=== PATIENT | female | born 1980 | race Caucasian/White ===

== ENCOUNTER 2022-03-10 21:48 | Inpatient (IN) | payer OTHER, MEDICAID ==
[~2022-03-10] VITALS: Ht 160 cm; Wt 94.8 kg
[2022-03-10 21:58] VITALS: BP_SYST 105
--- NOTE | 2022-03-10 22:25 | NUR ---
PATIENT TO ER BED 2 FOR EVALUATION. SIDE RAILS UP.
--- NOTE | 2022-03-10 22:32 | NUR ---
AGNES SOLANO AT BEDSIDE EXAMINING PATIENT.
--- NOTE | 2022-03-10 23:25 | NUR ---
pt came with rash over her lower abdomen. pt is A & O x 4, compalining pain 10/10. pt has dialisys access on the abdomen.
[2022-03-11] MEDS ORDERED: OXYCODONE/ACETAMINOPHEN *10*mg/325 mg TABLET PO ONE
[2022-03-11 00:37] LABS: BASOPHILS % (AUTO) 0.4 % (0.0-2.0); EOSINOPHILS # (AUTO) 0.1 K/uL (0.0-0.4); EOSINOPHILS % (AUTO) 1.4 % (0.0-4.0); HEMATOCRIT 26.4 % (36-48); HEMOGLOBIN 9.2 g/dL (12.0-16.0); LYMPHOCYTES # (AUTO) 1.9 K/uL (1.0-5.5); LYMPHOCYTES % (AUTO) 21.2 % (20.5-51.5); MEAN CORPUSCULAR HEMOGLOBIN 38 pg (27-31); MEAN CORPUSCULAR HGB CONC 35 % (32-36); MEAN CORPUSCULAR VOLUME 108 fL (79.0-98.0); MONOCYTES # (AUTO) 0.5 K/uL (0.0-1.0); MONOCYTES % (AUTO) 6.1 % (1.7-9.3); NEUTROPHILS # (AUTO) 6.4 K/uL (1.8-7.7); NEUTROPHILS % (AUTO) 70.9 % (40.0-70.0); PLATELET COUNT (AUTO) 368 K/uL (130-430); RED BLOOD CELL COUNT(AUTO) 2.44 MIL/uL (4.2-6.2); RED CELL DISTRIBUTION WIDTH 18.7 % (9.0-15.0)
[2022-03-11 00:47] LABS: CALCIUM 8.3 mg/dL (8.4-11.0); POTASSIUM 3.5 mmol/L (3.5-5.1)
[2022-03-11 01:03] LABS: ALBUMIN 2.5 g/dL (3.4-4.8); TOTAL BILIRUBIN 0.5 mg/dL (0.0-1.0)
[2022-03-11 01:07] LABS: CREATININE 16.74 mg/dL (0.55-1.30)
[2022-03-11 01:23] LABS: ERYTHROCYTE SEDIMENTATION RATE 30 MM/HR (0-20)
[2022-03-11] MEDS ORDERED: MORPHINE 4 MG INJ. 4 MG/ML VIAL IM ONE (01:45)
[2022-03-11] MEDS ORDERED: LINEZOLID 300 ML IV ONE (03:45)
[2022-03-11] MEDS ORDERED: PIPERACILLIN/TAZO 3.375 GM in NS 50 ML IV ONE (03:45)
--- NOTE | 2022-03-11 03:58 | NUR ---
admit call Paged Dr. Jordyn Gupta [phone] (medical coverage and paged PCP). S/W Josue. Josue called back and stated that for admission, we need to go through [phone]# [phone]), not his office number. This is not [facility] patient therefore unable to reach Dr. Gupta, he is not construction safety manager tonight. Will page admitting MD- Dr. Funk.
--- NOTE | 2022-03-11 04:06 | NUR ---
Admit call Paged Dr. Funk, pager [phone]
[2022-03-11] MEDS ORDERED: PIPERACILLIN/TAZOBACTAM 3.375 GM/VIAL (ZOSYN) IV ONE (04:48)
[2022-03-11] MEDS ORDERED: ONDANSETRON HCL 4 MG/2 ML VIAL IVP ONE (05:45)
--- NOTE | 2022-03-11 06:30 | NUR ---
Admit bed requested Patient will be admitted to care of . Admitted to MED SURGE unit. Diagnosis ABDOMINAL WALL INFECTION Inpatient (Yes or No) NO Observation (Yes or No) NO Orientation concerns or request close to nursing station (Yes or No) NO Covid Status PENDING On vent or bipap NO Isolation requirements Needs a sitter NO From Home (Yes or if No enter name of facility) HOME Requires Dialysis (Yes or No) YES Med Rec Completed (Yes of No)
--- NOTE | 2022-03-11 08:45 | NUR ---
Initial Notes Patient arrived to unit via wheelchair. Patient ambulatory. Vital Signs obtained, within range. SPO2 at 100% on room air. No s/s of distress noted, no SOB. Patient states feels nauseas, states started after receiving morphine in ER. Was given Zofran around 0700. Will continue to monitor. Patient has been oriented to room, use of call light. Safety precautions in place and call light within reach.
--- NOTE | 2022-03-11 08:45 | NUR ---
CARE ENDORSED TO TIFFANIE RANDALL FOR [facility] BED 130A. SBAR PROVIDED. PACKET ALSO PROVIDED. VSS. NAD NOTED. END OF CARE.
--- NOTE | 2022-03-11 09:13 | NUR ---
SURGERY CONSULT CALLED DR AGEE CONSULT SPOKE TO NOTIFIED FOR CONSULT. ZANDRA ABD WALL IFECTION Addendum: 03/11/22 at 0917 by Ghislaine Vu RN SURGERY CONSULT CALLED DR AGEE CONSULT SPOKE TO NOTIFIED FOR CONSULT. ZANDRA ABD WALL INFECTION
--- NOTE | 2022-03-11 12:00 | NUR ---
Notes Patient is awake. Dr. Almodovar came to see patient. No new orders.
[2022-03-11] MEDS: PIPERACILLIN/TAZOBACTAM 2.25 GM in NS 50 ML IV SCH ×2 (12:11→18:25)
[2022-03-11] MEDS ORDERED: ATOR40TA68 PO (12:29)
[2022-03-11] MEDS ORDERED: CEPH250C PO (12:29)
[2022-03-11] MEDS ORDERED: SEVE800T8 PO (12:29)
[2022-03-11] MEDS ORDERED: FENO160 PO (12:29)
[2022-03-11] MEDS ORDERED: CALC0.258 PO (12:29)
[2022-03-11] MEDS ORDERED: LISI2.5T48 PO (12:29)
[2022-03-11] MEDS ORDERED: HYDR-4037 PO (12:29)
[2022-03-11] MEDS ORDERED: DOCU250C14 PO (12:29)
[2022-03-11] MEDS ORDERED: SUCR500T PO (12:29)
[2022-03-11] MEDS ORDERED: traMADol HCL HCL 50 MG TABLET (ULTRAM) PO ONE (12:30)
[2022-03-11] MEDS: metroNIDAZOLE 500 mg/NS 100 ML IV SCH ×2 (14:20→22:48)
[2022-03-11] MEDS ORDERED: NON-FORMULARY MEDICATION (Sucroferric Oxyhydroxide (Velphoro) 1 TAB) PO SCH (15:00)
[2022-03-11 16:00] VITALS: BP_SYST 95
[2022-03-11] MEDS: SEVELAMER CARBONATE 800 MG TABLET PO SCH ×3 (17:40→22:46)
--- NOTE | 2022-03-11 18:00 | NUR ---
Notes Patient in bed, eating dinner. Does not complain of pain. No distress noted. Patient on room air. Patient states feels better. Has not had any emesis recently. Safety precautions are in place. Patient has call light within reach. Gave report and endorsed continuing of care of incoming nurse. Addendum: 03/11/22 at 2000 by Elizabeth Rizzo LVN Closing Note Patient in bed, eating dinner. Does not complain of pain. No distress noted. Patient on room air. Patient states feels better. Patient states less nausea, no emesis at this time. Safety precautions are in place. Patient has call light within reach. Gave report and endorsed continuing of care of incoming nurse.
[2022-03-11] MEDS: hydrALAZINE HCL 10 MG TABLET PO SCH (21:00)
[2022-03-11] MEDS: VELPHORO 500 MG PO SCH (22:00)
[2022-03-11 22:36] VITALS: BP_SYST 113
[2022-03-11] MEDS: ATORVASTATIN 20 MG TABLET PO SCH (22:47)
[2022-03-11] MEDS: DOCUSATE SODIUM 250 MG CAPSULE PO SCH (22:47)
[2022-03-11] MEDS: traMADol HCL HCL 50 MG TABLET (ULTRAM) PO SCH (22:47)
[2022-03-11] MEDS: FENOFIBRATE NANOCRYSTALLIZED 48 MG TABLET (TRICOR) PO SCH (22:47)
[2022-03-12] MEDS: PIPERACILLIN/TAZOBACTAM 2.25 GM in NS 50 ML IV SCH ×2 (00:39→05:04)
[2022-03-12 01:10] VITALS: BP_SYST 118
--- NOTE | 2022-03-12 05:03 | NUR ---
CONSULT: CONSULT CALLED FOR DR. JESSICA BECERRA EQUIP TECH THIS MORNING I SPOKE TO EWA BA REASON BAG MAKING MACHINE TENDER PHONE: [phone]
--- NOTE | 2022-03-12 05:07 | NUR ---
CONSULT CALLED FOR DR. FOSTER I SPOKE TO EWA BA REASON FOR CONSULT: ABDOMINAL WALL INFECTION REQUESTING CONSULT: DR. COSME SPONSORSHIP MANAGER PHONE: [phone]
[2022-03-12] MEDS: metroNIDAZOLE 500 mg/NS 100 ML IV SCH (06:12)
[2022-03-12 08:00] VITALS: BP_SYST 107; BP_SYST 115
--- NOTE | 2022-03-12 08:00 | NUR ---
Initial Notes Patient is AOx4. No s/s of distress, no SOB. Patient denies pain at this time. Vital signs within range. Safety precautions in range and call light within reach.
[2022-03-12] MEDS: lisinopriL 5 MG TABLET PO SCH (08:51)
[2022-03-12] MEDS: DOXYCYCLINE HYCLATE 100 MG CAPSULE PO SCH ×2 (08:53→21:16)
[2022-03-12] MEDS: SEVELAMER CARBONATE 800 MG TABLET PO SCH ×3 (08:53→17:57)
[2022-03-12] MEDS: ACETAMINOPHEN 325 MG TABLET PO PRN ×2 (08:54→17:59)
[2022-03-12] MEDS: DOCUSATE SODIUM 250 MG CAPSULE PO SCH ×2 (08:54→21:15)
[2022-03-12] MEDS: hydrALAZINE HCL 10 MG TABLET PO SCH ×2 (08:54→21:00)
[2022-03-12] MEDS: traMADol HCL HCL 50 MG TABLET (ULTRAM) PO SCH ×2 (08:55→21:31)
[2022-03-12] MEDS: calcitrioL 0.25 MCG CAPSULE PO SCH (08:55)
[2022-03-12] MEDS: VELPHORO 500 MG PO SCH ×3 (08:56→17:58)
[2022-03-12 12:00] VITALS: BP_SYST 138
--- NOTE | 2022-03-12 12:00 | NUR ---
Notes Peritoneal dialysis nurse here. Patient is stable. No distress. Vital signs within range. Call light within reach.
[2022-03-12 13:35] LABS: BASOPHILS # (AUTO) 0.1 K/uL (0.0-0.2); BASOPHILS % (AUTO) 0.8 % (0.0-2.0); EOSINOPHILS # (AUTO) 0.2 K/uL (0.0-0.4); EOSINOPHILS % (AUTO) 1.6 % (0.0-4.0); HEMATOCRIT 29.5 % (36-48); HEMOGLOBIN 9.9 g/dL (12.0-16.0); LYMPHOCYTES # (AUTO) 1.1 K/uL (1.0-5.5); LYMPHOCYTES % (AUTO) 10.8 % (20.5-51.5); MEAN CORPUSCULAR HEMOGLOBIN 37 pg (27-31); MEAN CORPUSCULAR HGB CONC 34 % (32-36); MEAN CORPUSCULAR VOLUME 109 fL (79.0-98.0); MONOCYTES # (AUTO) 0.5 K/uL (0.0-1.0); MONOCYTES % (AUTO) 4.6 % (1.7-9.3); NEUTROPHILS # (AUTO) 8.2 K/uL (1.8-7.7); NEUTROPHILS % (AUTO) 82.2 % (40.0-70.0); PLATELET COUNT (AUTO) 399 K/uL (130-430); RED BLOOD CELL COUNT(AUTO) 2.71 MIL/uL (4.2-6.2); RED CELL DISTRIBUTION WIDTH 18.9 % (9.0-15.0); WHITE BLOOD COUNT (AUTO) 9.9 K/uL (4.8-10.8)
--- NOTE | 2022-03-12 15:30 | NUR ---
Notes MD came to see patient. New orders received. Patient in stable condition.
[2022-03-12 16:00] VITALS: BP_SYST 117
[2022-03-12] MEDS: ONDANSETRON HCL 4 MG/2 ML VIAL IVP PRN (17:36)
--- NOTE | 2022-03-12 18:30 | NUR ---
Closing notes Patient in bed, resting. No s/s of distress. No pain. Endorsed continuing of care to incoming nurse. Safety precautions in place. Call light within reach.
--- NOTE | 2022-03-12 20:45 | NUR ---
RECEIVED PT STANDING AT EDGE OF BED, NO DISTRESS NOTED, DENIES PAIN. YA Addendum: 03/13/22 at 0134 by [facility] Shannan casino floor person 133: PT FEEL NAUSEOUS, ZOFRAN 4MG GIVEN.
[2022-03-12 20:56] VITALS: BP_SYST 117
[2022-03-12] MEDS: ATORVASTATIN 20 MG TABLET PO SCH (21:16)
[2022-03-12] MEDS: FENOFIBRATE NANOCRYSTALLIZED 48 MG TABLET (TRICOR) PO SCH (21:16)
[2022-03-12] MEDS: INSULIN REGULAR, HUMAN 100 UNITS/ML, 10 ML VIAL (humuLIN R) SUBCUT PRN (22:46)
[2022-03-13] VITALS: BP_SYST 91
[2022-03-13] MEDS: ONDANSETRON HCL 4 MG/2 ML VIAL IVP PRN (01:29)
[2022-03-13 06:15] LABS: BASOPHILS # (AUTO) 0.1 K/uL (0.0-0.2); BASOPHILS % (AUTO) 0.6 % (0.0-2.0); EOSINOPHILS # (AUTO) 0.2 K/uL (0.0-0.4); EOSINOPHILS % (AUTO) 2.4 % (0.0-4.0); HEMATOCRIT 25.6 % (36-48); HEMOGLOBIN 8.9 g/dL (12.0-16.0); LYMPHOCYTES # (AUTO) 1.2 K/uL (1.0-5.5); LYMPHOCYTES % (AUTO) 13.8 % (20.5-51.5); MEAN CORPUSCULAR HEMOGLOBIN 37 pg (27-31); MEAN CORPUSCULAR HGB CONC 35 % (32-36); MEAN CORPUSCULAR VOLUME 107 fL (79.0-98.0); MONOCYTES # (AUTO) 0.6 K/uL (0.0-1.0); MONOCYTES % (AUTO) 6.4 % (1.7-9.3); NEUTROPHILS # (AUTO) 6.7 K/uL (1.8-7.7); PLATELET COUNT (AUTO) 374 K/uL (130-430); RED BLOOD CELL COUNT(AUTO) 2.39 MIL/uL (4.2-6.2); RED CELL DISTRIBUTION WIDTH 18.6 % (9.0-15.0); WHITE BLOOD COUNT (AUTO) 8.7 K/uL (4.8-10.8)
[2022-03-13 06:42] LABS: CALCIUM 8.6 mg/dL (8.4-11.0); POTASSIUM 3.7 mmol/L (3.5-5.1)
[2022-03-13] MEDS: INSULIN REGULAR, HUMAN 100 UNITS/ML, 10 ML VIAL (humuLIN R) SUBCUT PRN ×2 (06:46→21:19)
[2022-03-13 07:23] LABS: CREATININE 14.88 mg/dL (0.55-1.30)
--- NOTE | 2022-03-13 07:25 | NUR ---
CRITICAL LAB RESULT- CREATININE=14.88 AND BUN=52 CALLED FROM SALES ORDER CLERK -Endorsed to [facility] shift nurse regarding this critical lab results at nurses' station. Addendum: 03/13/22 at 0728 by [employer] cable supervisor ADDITIONAL NOTES; MARGIE FLORES IS HER NAME FROM LAB UNIT.
[2022-03-13 08:00] VITALS: BP_SYST 117
[2022-03-13 08:02] LABS: NEUTROPHILS % (AUTO) 76.8 % (40.0-70.0)
[2022-03-13] MEDS: SEVELAMER CARBONATE 800 MG TABLET PO SCH ×3 (09:54→18:24)
[2022-03-13] MEDS: lisinopriL 5 MG TABLET PO SCH (09:55)
[2022-03-13] MEDS: calcitrioL 0.25 MCG CAPSULE PO SCH (09:56)
[2022-03-13] MEDS: traMADol HCL HCL 50 MG TABLET (ULTRAM) PO SCH ×2 (09:56→21:11)
[2022-03-13] MEDS: DOXYCYCLINE HYCLATE 100 MG CAPSULE PO SCH ×2 (09:56→21:11)
[2022-03-13] MEDS: hydrALAZINE HCL 10 MG TABLET PO SCH ×2 (09:57→21:00)
[2022-03-13] MEDS: DOCUSATE SODIUM 250 MG CAPSULE PO SCH ×2 (09:58→21:00)
[2022-03-13] MEDS: VELPHORO 500 MG PO SCH ×3 (09:58→18:26)
--- NOTE | 2022-03-13 11:49 | NUR ---
Spoke w/Christian RUCKER at [facility] [phone] ext [phone]. Auth # for inpt stay [id number]. Requested authorization for continued stay vs transfer to contracted hospital. Christian stated he will get get back to me with a decision.
--- NOTE | 2022-03-13 11:59 | NUR ---
Received a return call from Christian enriquez [facility]-they will not transfer the patient into network-authorization is to treat and dsicharge.
--- NOTE | 2022-03-13 15:55 | NUR ---
Dietitian Recommendations * [facility] Renal Diet * Encourage PO intake Please refer to Nutrition Assessment for details. Addendum: 03/13/22 at [address] Amended: Links added.
[2022-03-13] MEDS ORDERED: EPOETIN ALFA 20,000 UNITS/ML VIAL SUBCUT SCH (17:00)
--- NOTE | 2022-03-13 17:50 | NUR ---
0800: PATIENT IS AWAKE, ALERT, ORIENTED X 4 TO NAME, PERSON, PLACE, AND TIME. RESPIRATION EVEN AND UNLABORED NO S/S OF ANY ACUTE DISTRESS NOTED. ABLE TO VERBALIZE NEEDS NO C/O ANY PAIN OR DISCOMFORT NOTED. ABDOMEN SOFT AND NON-DISTENDED, POSITIVE BOWEL SOUND X 4 NO N/V OR DIARRHEA NOTED. SKIN WARM AND DRY INTACT W/O ANY REDNESS OR EDEMA NOTED. LEFT SIDED WEAKNESS FROM OLD CVA, LEFT ARM IN SLING DUE TO LEFT SHOULDER FRACTURE. TO BE NPO POST BREAKFAST FOR PROCEDURE THIS AFTERNOON 1700: PATIENT WAS PICKED UP BY OR STAFF FOR PLAN PROCEDURE, PATIENT REMAINED AWAKE, ALERT, NO CHANGE IN LOC. IV INFUSING WELL W/O ANY SWELLING OR BLEEDING FROM SITE NOTED. Addendum: 03/13/22 at 1755 by One head well puller DISREGARDING ABOVE CHARTING, CHARTED ON WRONG PATIENT. Addendum: 03/13/22 at 1935 by One Dave MOONEY DISREGARD ABOVE NOTE, INCORRECT SHUTDOWN COORDINATOR
--- NOTE | 2022-03-13 17:55 | NUR ---
0800: PATIENT IS AWAKE, ALERT, ORIENTED X 4 TO NAME, PERSON, PLACE, AND TIME. RESPIRATION EVEN AND UNLABORED NO S/S OF ANY ACUTE DISTRESS NOTED. ABDOMEN SOFT AND NON-DISTENDED POSITIVE BOWEL SOUND X 4 NO N/V OR DIARRHEA NOTED. PD CATH LEFT LOWER ABDOMEN INTACT, WITH SOME TENDERNESS NOTED WITH LIGHT PALPATION. SKIN WARM AND DRY INTACT W/O ANY REDNESS OR EDEMA NOTED.
--- NOTE | 2022-03-13 19:00 | NUR ---
PATIENT HAD REMAINED COMFORTABLE W/O ANY CHANGE IN LOC. ENDORSED PATIENT TO PM SHIFT NURSE
[2022-03-13 19:40] VITALS: BP_SYST 109
--- NOTE | 2022-03-13 19:58 | NUR ---
1957 Report and care of pt. given over to VINICIO Moss
[2022-03-13] MEDS: FENOFIBRATE NANOCRYSTALLIZED 48 MG TABLET (TRICOR) PO SCH (21:00)
[2022-03-13 21:03] VITALS: BP_SYST 111
[2022-03-13] MEDS: ATORVASTATIN 20 MG TABLET PO SCH (21:10)
[2022-03-14 00:06] VITALS: BP_SYST 114
[2022-03-14 08:30] VITALS: BP_SYST 120
[2022-03-14] MEDS: SEVELAMER CARBONATE 800 MG TABLET PO SCH ×3 (08:46→17:25)
[2022-03-14] MEDS: calcitrioL 0.25 MCG CAPSULE PO SCH (08:47)
[2022-03-14] MEDS: DOCUSATE SODIUM 250 MG CAPSULE PO SCH (08:47)
[2022-03-14] MEDS: lisinopriL 5 MG TABLET PO SCH (08:48)
[2022-03-14] MEDS: DOXYCYCLINE HYCLATE 100 MG CAPSULE PO SCH (08:49)
[2022-03-14] MEDS: traMADol HCL HCL 50 MG TABLET (ULTRAM) PO SCH (08:49)
[2022-03-14] MEDS: hydrALAZINE HCL 10 MG TABLET PO SCH (08:49)
[2022-03-14] MEDS: VELPHORO 500 MG PO SCH ×3 (09:51→17:25)
--- NOTE | 2022-03-14 12:06 | NUR ---
[facility] NURSE CALLED REGARDING [facility]. BUT INFORMED HER NO DR COSME YET.
[2022-03-14 13:20] VITALS: BP_SYST 120
[2022-03-14 16:33] VITALS: BP_SYST 135
[2022-03-14 17:40] VITALS: BP_SYST 135
--- NOTE | 2022-03-14 18:35 | NUR ---
PATIENT LEFT IN STABLE CONDITION. FOLLOW UP CARE WITH PCP IN ONE WEEK. [employer]ER[employer] RETROFIT ARCHITECT MEDICINES FROM THE PHARMACY. AND REMOVED [facility] I D BAND. IV ACCESS REMOVED. DISCHARGE INSTRUCTION GIVEN AND UNDERSTAND TO CONTINUE MEDICATION PREVIOUSLY TAKEN. KEFLEX TABLET FOR 7 DAYS. AND TO COMMERCIAL [employer]EN RETROFIT ARCHITECT AT [facility].
== END 2022-03-14 18:35 | disposition home or self-care (01) | DRG 919 ==
LOC: SED 21:48 → SMU 03-11 05:43
PROVIDERS: ADMIT Family Medicine; ATTEND Family Medicine
PROC: 3E1M39Z Irrigation of Peritoneal Cavity using Dialysate, Percutaneous Approach (ICD-10-PCS; principal; 2022-03-11)
PROC: 3E1M39Z Irrigation of Peritoneal Cavity using Dialysate, Percutaneous Approach (ICD-10-PCS; 2022-03-12)
PROC: 3E1M39Z Irrigation of Peritoneal Cavity using Dialysate, Percutaneous Approach (ICD-10-PCS; 2022-03-13)
DX: T85.71XA Infection and inflammatory reaction due to peritoneal dialysis catheter, initial encounter (principal); N18.6 End stage renal disease; L03.311 Cellulitis of abdominal wall; E44.0 Moderate protein-calorie malnutrition; I12.0 Hypertensive chronic kidney disease with stage 5 chronic kidney disease or end stage renal disease; E87.6 Hypokalemia; K42.9 Umbilical hernia without obstruction or gangrene; E11.65 Type 2 diabetes mellitus with hyperglycemia; Z20.822 Contact with and (suspected) exposure to COVID-19; D64.9 Anemia, unspecified; E11.22 Type 2 diabetes mellitus with diabetic chronic kidney disease; Z68.31 Body mass index [BMI] 31.0-31.9, adult; Z99.2 Dependence on renal dialysis
CPT/HCPCS: 36415; 76376; 80048; 80053; 82962; 83605; 83735; 85025; 85651-TC; 87040; 87081; 90935; 90937; 96365; 96372; 96375; 99285; J0696; J1815; J2020; J2270; J2405; J2543; J3490; J7060